=== PATIENT | female | born 1935 | race Caucasian/White ===

== ENCOUNTER → 2017-09-19 | Outpatient (CLI) | payer MEDICARE ==
[~2017-09-19] MED LIST: ASPI81CH PO; BUDE6HFA; CORTIZONE-10 PL28 GM; ERGO400 PO; GLUC500; LATA.005SO BOTHEYES; MONT10T PO
[2017-09-20 09:14] LABS: Candida species (DNA Probe) Negative (NEGATIVE); G. vaginalis (DNA Probe) Positive (NEGATIVE); T. vaginalis (DNA Probe) Negative (NEGATIVE)
== END ==
LOC: LAB SHORT 12:12 → LAB 12:12
PROVIDERS: Obstetrics & Gynecology
DX: N76.0 Acute vaginitis (principal)
CPT/HCPCS: 87480; 87510; 87660

== ENCOUNTER 2018-04-05 10:34 | Day surgery (SDC) | payer MEDICARE ==
[~2018-04-05] VITALS: Ht 162.6 cm; Wt 55.3 kg
[2018-04-05] MEDS ORDERED: HEALTHY HEART1 EACH (11:02)
--- NOTE | 2018-04-05 11:16 | NUR ---
04/05/18 [id number] Elizabeth Lucio FIRST IV UNSUCCESS IN R HAND SECOND IV SUCCESS IN L WRIST
--- NOTE | 2018-04-05 12:43 | NUR ---
04/05/18 1243 Lisa Jonas PATIENT ADMITTED TO MILD PAIN WHEN SWALLOWING BUT DENIED NEED FOR PAIN MEDICATION. WAS ABLE TO DRINK FLUIDS WITHOUT PROBLEMS. PATIENT AND WERE INSTRUCTED TO CALL MD IF ANY INCREASE IN PROBLEMS SWALLOWING
== END 2018-04-05 12:35 | disposition home or self-care (01) ==
LOC: ORSCSDS 10:34
PROVIDERS: Internal Medicine Gastroenterology
PROC: 0D758ZZ Dilation of Esophagus, Via Natural or Artificial Opening Endoscopic (ICD-10-PCS; principal; 2018-04-05 11:45)
PROC: 0DB68ZX Excision of Stomach, Via Natural or Artificial Opening Endoscopic, Diagnostic (ICD-10-PCS; principal; 2018-04-05 11:45)
DX: K21.9 Gastro-esophageal reflux disease without esophagitis (principal); R13.10 Dysphagia, unspecified; K31.7 Polyp of stomach and duodenum; K22.2 Esophageal obstruction; K44.9 Diaphragmatic hernia without obstruction or gangrene; J45.909 Unspecified asthma, uncomplicated; Z79.899 Other long term (current) drug therapy
CPT/HCPCS: 88305; 88312; 88342; J7120

== ENCOUNTER → 2018-04-09 | Outpatient (CLI) | payer MEDICARE ==
[~2018-04-09] MED LIST changes: +HEALTHY HEART1 EACH
[2018-04-09 12:20] LABS: Source, Urine Clean Catch
[2018-04-09 15:18] LABS: Bilirubin, Urine Neg (Neg); Blood, Urine Neg (Neg); Glucose Qualitative, Urine Neg (Neg); Ketones, Urine Neg (Neg); Leukocyte Esterase, Urine 2+ (Neg); Nitrite, Urine Neg (Neg); Protein, Urine Neg (Neg); Urobilinogen, Urine NORM (Normal)
[2018-04-09 15:57] LABS: Appearance, Urine Hazy (Clear); Color, Urine Yellow (P-Yellow)
[2018-04-09 15:58] LABS: Red Blood Cells, Urine Rare /hpf (0-2); Squamous Epithelial Cells Few /hpf (Few)
[2018-04-09 15:59] LABS: Bacteria Few /hpf
== END | disposition home or self-care (01) ==
LOC: LAB 12:20 → LAB SHORT 12:20
PROVIDERS: Internal Medicine
DX: R30.0 Dysuria (principal)
CPT/HCPCS: 81001; 87077; 87086; 87186

== ENCOUNTER 2022-09-01 13:48 | Emergency (ER) | payer MEDICARE ==
[~2022-09-01] VITALS: Ht 162.6 cm; Wt 57.6 kg
[2022-09-01 14:50] LABS: BASOPHILS ABSOLUTE AUTO 0.06 K/mm3 (0.00-0.23); BASOPHILS PERCENT AUTO 0 % (0-2); EOSINOPHILS ABSOLUTE AUTO 0.17 K/mm3 (0.00-0.68); EOSINOPHILS PERCENT AUTO 1 % (0-6); Hemoglobin 14.6 g/dL (11.5-16.0); IMMATURE GRAN ABSOLUTE AUTO 0.07 K/mm3 (0.00-0.10); IMMATURE GRAN PERCENT AUTO 0 % (0-1); LYMPHOCYTES PERCENT AUTO 24 % (21-46); MONOCYTES ABSOLUTE AUTO 0.96 K/mm3 (0.16-1.47); MONOCYTES PERCENT AUTO 6 % (4-13); Mean Corpuscular HGB 29.7 pg (26.0-34.0); Mean Corpuscular HGB Conc 31.7 g/dL (31.5-36.5); Mean Corpuscular Volume 94 fL (80-100); Mean Platelet Volume 9.8 fL (9.1-12.4); NEUTROPHILS ABSOLUTE AUTO 11.84 K/mm3 (1.96-9.15); NEUTROPHILS PERCENT AUTO 69 % (41-73); Platelet Count 271 K/mm3 (150-400); RDW Coefficient Variation 13.6 % (11.7-14.2); RDW Standard Deviation 46.9 fL (35.1-46.3); Red Blood Cell Count 4.92 M/mm3 (3.80-5.20)
[2022-09-01 15:10] LABS: Albumin/Globulin Ratio 1.1 (0.8-1.8); Bilirubin, Total 0.5 mg/dL (0.1-1.0); Calcium, Blood 9.2 mg/dL (8.5-10.1); Creatinine, Blood 0.71 mg/dL (0.40-1.00); Globulin, Blood 3.7 g/dL (2.2-4.0); Potassium, Blood 3.7 mmol/L (3.5-5.5); Total Protein, Blood 7.7 g/dL (6.4-8.2)
[2022-09-01 15:46] LABS: International Normalized Ratio 1.03; Prothrombin Time Results 10.8 Sec (9.7-11.5)
[2022-09-01 16:02] LABS: Source, Urine Clean Catch
[2022-09-01 16:24] LABS: Appearance, Urine Clear (Clear); Bilirubin, Urine Neg (Neg); Blood, Urine Neg (Neg); Color, Urine Yellow (P-Yellow); Glucose Qualitative, Urine Neg (Neg); Ketones, Urine 3+ (Neg); Leukocyte Esterase, Urine Neg (Neg); Nitrite, Urine Pos (Neg); Protein, Urine Neg (Neg); Specific Gravity, Urine 1.015 (1.003-1.022); Urobilinogen, Urine NORM (Normal)
[2022-09-01 16:32] LABS: Bacteria Mod /hpf; Red Blood Cells, Urine 0-2 /hpf (0-2); Squamous Epithelial Cells Few /hpf (Few)
[2022-09-01 16:45] VITALS: BP 129/81
[2022-09-01] MEDS ORDERED: CEPH500 PO (17:18)
== END 2022-09-01 17:50 | disposition home or self-care (01) ==
LOC: ER 13:48
PROVIDERS: Emergency Medicine; Physician Assistant
DX: R07.9 Chest pain, unspecified (principal); D72.829 Elevated white blood cell count, unspecified; N39.0 Urinary tract infection, site not specified; J44.9 Chronic obstructive pulmonary disease, unspecified; Z98.890 Other specified postprocedural states
CPT/HCPCS: 36415; 71046; 80053; 81001; 83690; 84484; 85025; 85610; 93005; 93010; 99285-25

== ENCOUNTER 2022-09-09 08:40 | Inpatient (IN) | payer MEDICARE ==
[~2022-09-09] VITALS: Ht 162.6 cm; Wt 56.7 kg
[~2022-09-09 08:40] MED LIST changes: +CEPH500 PO
[2022-09-09] MEDS ORDERED: BRINZOLAMIDE15 ML (08:59)
[2022-09-09 09:17] LABS: BASOPHILS ABSOLUTE AUTO 0.05 K/mm3 (0.00-0.23); BASOPHILS PERCENT AUTO 0 % (0-2); EOSINOPHILS ABSOLUTE AUTO 0.02 K/mm3 (0.00-0.68); EOSINOPHILS PERCENT AUTO 0 % (0-6); Hematocrit 42.8 % (33.0-51.0); Hemoglobin 13.8 g/dL (11.5-16.0); IMMATURE GRAN ABSOLUTE AUTO 0.09 K/mm3 (0.00-0.10); IMMATURE GRAN PERCENT AUTO 1 % (0-1); LYMPHOCYTES ABSOLUTE AUTO 3.56 K/mm3 (0.84-5.20); LYMPHOCYTES PERCENT AUTO 21 % (21-46); MONOCYTES ABSOLUTE AUTO 1.13 K/mm3 (0.16-1.47); MONOCYTES PERCENT AUTO 7 % (4-13); Mean Corpuscular HGB 29.5 pg (26.0-34.0); Mean Corpuscular HGB Conc 32.2 g/dL (31.5-36.5); Mean Corpuscular Volume 92 fL (80-100); Mean Platelet Volume 9.5 fL (9.1-12.4); NEUTROPHILS ABSOLUTE AUTO 12.33 K/mm3 (1.96-9.15); NEUTROPHILS PERCENT AUTO 72 % (41-73); Platelet Count 371 K/mm3 (150-400); RDW Coefficient Variation 13.3 % (11.7-14.2); RDW Standard Deviation 45.2 fL (35.1-46.3); Red Blood Cell Count 4.68 M/mm3 (3.80-5.20); White Blood Cell Count 17.18 K/mm3 (4.00-11.30)
[2022-09-09 09:35] LABS: Albumin/Globulin Ratio 0.7 (0.8-1.8); Bilirubin, Total 1.3 mg/dL (0.1-1.0); Bun/Creatinine Ratio 21.4 (12.0-20.0); Calcium, Blood 8.7 mg/dL (8.5-10.1); Creatinine, Blood 0.79 mg/dL (0.40-1.00); Globulin, Blood 4.1 g/dL (2.2-4.0); Potassium, Blood 3.9 mmol/L (3.5-5.5); Total Protein, Blood 7.1 g/dL (6.4-8.2)
[2022-09-09 13:19] VITALS: BP 118/63
[2022-09-09 14:00] LABS: CHOL/HDL RATIO 2.9; Cholesterol 140 mg/dL (50-200); HDL Cholesterol 49 mg/dL (>39); LDL/HDL RATIO 1.5; Low Density Lipoprotein Chol 75 mg/dL (0-110); Triglycerides 79 mg/dL (30-160); Very Low Density Lipoprot Chol 15 mg/dL (6-32)
[2022-09-09 16:43] VITALS: BP 122/71
--- NOTE | 2022-09-09 17:55 | NUR ---
SHIFT SUMMARY 1310 RECEIVED PT TO RM [id number] FROM ER VIA W/C. PT ABLE TO TX SELF TO BED. ADMITTED FOR C/O CP WHEN TAKING A DEEP BREATH. PER REPORT, CXR DONE IN ER SHOWING NEW PLEURAL EFFUSION. PT REPORTED PAIN IN L SIDE WITH SOME MOVEMENTS D/T PNM. PER REPORT IV ABX GIVEN IN ER. PT IS A&O, PLEASANT AND CO-OP. SITTING UP IN BED EATING DINNER AND VISITING WITH FAMILY AT THIS TIME. DENIES FURTHER NEEDS, CALL LT IN REACH.
[2022-09-09 19:46] VITALS: BP 123/71
--- NOTE | 2022-09-10 04:02 | NUR ---
SHIFT SUMMARY; NO ACUTE CHANGES OVERNIGHT. THE PT IS AXO X4 AND A STANDBY ASSIST TO THE BATHROOM. THE PT HAS BEEN RESTING IN BED T/O THE NIGHT. THE PT STATES THAT LYING STILL SHE HAS NO PAIN, HOWEVER, WITH MOVEMENT THE PT ENDORSES A 4/10 "STERNAL" PAIN. THE PT DENIES ANY SOB, N/V OR NUMBNESS/TINGLING. CURRENTLY THE PT IS RESTING IN BED WITH THE BED IN THE LOWEST POSITION AND THE CALL LIGHT AT BEDSIDE.
[2022-09-10 04:40] VITALS: BP 115/70
[2022-09-10 05:02] LABS: Hematocrit 39.6 % (33.0-51.0); Hemoglobin 12.8 g/dL (11.5-16.0); Mean Corpuscular HGB 29.6 pg (26.0-34.0); Mean Corpuscular HGB Conc 32.3 g/dL (31.5-36.5); Mean Corpuscular Volume 92 fL (80-100); Mean Platelet Volume 9.5 fL (9.1-12.4); Platelet Count 346 K/mm3 (150-400); RDW Coefficient Variation 13.4 % (11.7-14.2); Red Blood Cell Count 4.32 M/mm3 (3.80-5.20); White Blood Cell Count 12.76 K/mm3 (4.00-11.30)
[2022-09-10 05:16] LABS: Albumin, Blood 2.8 g/dL (3.4-5.0); Albumin/Globulin Ratio 0.7 (0.8-1.8); Bilirubin, Total 0.7 mg/dL (0.1-1.0); Calcium, Blood 8.9 mg/dL (8.5-10.1); Creatinine, Blood 0.8 mg/dL (0.40-1.00); Globulin, Blood 4.1 g/dL (2.2-4.0); Potassium, Blood 3.7 mmol/L (3.5-5.5); Total Protein, Blood 6.9 g/dL (6.4-8.2)
[2022-09-10 07:58] VITALS: BP 118/65
[2022-09-10 15:52] VITALS: BP 99/60
--- NOTE | 2022-09-10 16:32 | NUR ---
SHIFT SUMMARY PT AWAKE DURING SHIFT REPORT THIS AM. A&O, PLEASANT AND CO-OP WITH CARE. UP TO BTHRM INDEPENDENTLY TODAY, FEELING BETTER AND STRONGER THAN YESTERDAY. DR ORTIZ IN EARLY TO SEE PT. NEW ORDERS PLACED TO R/O PE. PT HAVING MULTIPLE VISITORS TODAY. IMAGING NOTIFIED FOR TIME OF CT AND PT SOON TAKEN DOWN. DR ORTIZ LATER TO TO DISCUSS TEST RESULTS. NEW ORDERS PLACED. PT TO STAY ONE MORE NIGHT AND DR TO REASSESS IN AM. PT GETTING UP TO SHOWER AT THIS TIME. CALL LT IN REACH. ABLE TO MAKE NEEDS KNOWN.
[2022-09-10 19:37] VITALS: BP 108/64
--- NOTE | 2022-09-11 04:01 | NUR ---
SHIFT SUMMARY; NO ACUTE CHANGES OVERNIGHT. THE PT IS AXO X4 AND INDEPENDENT IN THE ROOM. THE PT IS WAITING TO SEE A FLIGHT SOFTWARE TEST ENGINEER IN THE AM. THE PT HAS BEEN SLEEPING IN BED T/O THE NIGHT. THE PT DENIES ANY SOB, CHEST PAIN/PRESSURE, PAIN OR N/V THIS SHIFT. CURRENTLY THE PT IS SLEEPING IN BED WITH THE BED IN THE LOWEST POSITION AND THE CALL LIGHT AT BEDSIDE.
[2022-09-11 04:30] VITALS: BP 124/66
[2022-09-11 05:26] LABS: SARS-Cov-2 (COVID-19) PCR, MMC NEGATIVE (NEGATIVE)
[2022-09-11 05:37] LABS: BASOPHILS ABSOLUTE AUTO 0.05 K/mm3 (0.00-0.23); BASOPHILS PERCENT AUTO 1 % (0-2); EOSINOPHILS ABSOLUTE AUTO 0.15 K/mm3 (0.00-0.68); EOSINOPHILS PERCENT AUTO 2 % (0-6); Hematocrit 35.9 % (33.0-51.0); Hemoglobin 11.8 g/dL (11.5-16.0); IMMATURE GRAN ABSOLUTE AUTO 0.06 K/mm3 (0.00-0.10); IMMATURE GRAN PERCENT AUTO 1 % (0-1); LYMPHOCYTES ABSOLUTE AUTO 3.31 K/mm3 (0.84-5.20); LYMPHOCYTES PERCENT AUTO 32 % (21-46); MONOCYTES ABSOLUTE AUTO 0.92 K/mm3 (0.16-1.47); MONOCYTES PERCENT AUTO 9 % (4-13); Mean Corpuscular HGB 29.5 pg (26.0-34.0); Mean Corpuscular HGB Conc 32.9 g/dL (31.5-36.5); Mean Corpuscular Volume 90 fL (80-100); Mean Platelet Volume 9.4 fL (9.1-12.4); NEUTROPHILS ABSOLUTE AUTO 5.83 K/mm3 (1.96-9.15); NEUTROPHILS PERCENT AUTO 56 % (41-73); Platelet Count 341 K/mm3 (150-400); RDW Coefficient Variation 13.3 % (11.7-14.2); White Blood Cell Count 10.32 K/mm3 (4.00-11.30)
[2022-09-11 07:56] VITALS: BP 119/81
[2022-09-11] MEDS ORDERED: COLCHICINE0.6 MG PO (09:58)
[2022-09-11] MEDS ORDERED: IBUP600 PO (09:59)
[2022-09-11] MEDS ORDERED: OMEP20ER PO (10:00)
[2022-09-11] MEDS ORDERED: VISBIOME 112.51 EACH PO (10:00)
[2022-09-11] MEDS ORDERED: DOXY100 PO (10:01)
--- NOTE | 2022-09-11 11:25 | NUR ---
DC- PT TAKEN DOWN IN STABLE CONDITION IN WC W/ FOR DC AND LEFT WITH ALL BELONGINGS.
[2022-09-15 12:12] LABS: LYME TOTAL ANTIBODY CIA Negative (Negative)
== END 2022-09-11 10:47 | disposition home or self-care (01) | DRG 314 ==
LOC: ER 08:40 → MEDS 08:41 → ENPENDDIS 09-11 10:05 → MEDS 09-11 10:47
PROVIDERS: Internal Medicine; Student in an Organized Health Care Education/Training Program; ADMIT Internal Medicine
DX: I30.9 Acute pericarditis, unspecified (principal); J18.9 Pneumonia, unspecified organism; J90 Pleural effusion, not elsewhere classified; Z20.822 Contact with and (suspected) exposure to COVID-19; J45.909 Unspecified asthma, uncomplicated; K22.2 Esophageal obstruction; K44.9 Diaphragmatic hernia without obstruction or gangrene; R07.9 Chest pain, unspecified; D72.829 Elevated white blood cell count, unspecified; H40.9 Unspecified glaucoma; R94.31 Abnormal electrocardiogram [ECG] [EKG]; Z98.49 Cataract extraction status, unspecified eye; Z90.49 Acquired absence of other specified parts of digestive tract; Z98.890 Other specified postprocedural states; Z91.048 Other nonmedicinal substance allergy status; Z88.8 Allergy status to other drugs, medicaments and biological substances; Z79.899 Other long term (current) drug therapy
CPT/HCPCS: 36415; 71046; 71260; 80053; 80061; 83605; 83735; 83880; 84145; 84443; 84484; 85025; 85027; 85379; 85651; 86618; 87040; 93005; 93010; 93306; 96365; 96367; 96372; 96375; 99285-25; A9270; G0378; J0456; J0696; J1650; J1885; J7050; Q9967; U0002

== ENCOUNTER → 2022-10-06 | Outpatient (CLI) | payer MEDICARE ==
[~2022-10-06] MED LIST changes: +BRINZOLAMIDE15 ML; +COLCHICINE0.6 MG PO; +DOXY100 PO; +IBUP600 PO; +OMEP20ER PO; +VISBIOME 112.51 EACH PO
== END ==
LOC: LAB SHORT 14:14 → PLD 14:14
DX: L30.9 Dermatitis, unspecified (principal); I96 Gangrene, not elsewhere classified
CPT/HCPCS: 85025; 85651; 86038; 87040; 88305

== ENCOUNTER → 2022-10-06 | Outpatient (CLI) | payer MEDICARE ==
[2022-10-06 16:02] LABS: BASOPHILS ABSOLUTE AUTO 0.05 K/mm3 (0.00-0.23); BASOPHILS PERCENT AUTO 1 % (0-2); EOSINOPHILS ABSOLUTE AUTO 0.16 K/mm3 (0.00-0.68); EOSINOPHILS PERCENT AUTO 2 % (0-6); Hematocrit 41.5 % (33.0-51.0); Hemoglobin 13.4 g/dL (11.5-16.0); IMMATURE GRAN ABSOLUTE AUTO 0.04 K/mm3 (0.00-0.10); IMMATURE GRAN PERCENT AUTO 0 % (0-1); LYMPHOCYTES ABSOLUTE AUTO 3.84 K/mm3 (0.84-5.20); LYMPHOCYTES PERCENT AUTO 41 % (21-46); MONOCYTES ABSOLUTE AUTO 0.68 K/mm3 (0.16-1.47); MONOCYTES PERCENT AUTO 7 % (4-13); Mean Corpuscular HGB 28.5 pg (26.0-34.0); Mean Corpuscular HGB Conc 32.3 g/dL (31.5-36.5); Mean Corpuscular Volume 88 fL (80-100); Mean Platelet Volume 10.8 fL (9.1-12.4); NEUTROPHILS ABSOLUTE AUTO 4.55 K/mm3 (1.96-9.15); NEUTROPHILS PERCENT AUTO 49 % (41-73); Platelet Count 239 K/mm3 (150-400); RDW Coefficient Variation 13.5 % (11.7-14.2); RDW Standard Deviation 43.7 fL (35.1-46.3); White Blood Cell Count 9.32 K/mm3 (4.00-11.30)
[2022-10-08 14:08] LABS: ANA DIRECT Negative (Negative)
== END | disposition home or self-care (01) ==
LOC: LAB 11:50 → LAB SHORT 11:50
PROVIDERS: Internal Medicine
DX: R21 Rash and other nonspecific skin eruption (principal)
CPT/HCPCS: 85025; 85651; 86038; 87040

== ENCOUNTER → 2024-02-22 | Outpatient (CLI) | payer MEDICARE ==
[2024-02-22 12:51] LABS: Source, Urine Clean Catch
[2024-02-22 15:36] LABS: Appearance, Urine Clear (Clear); Bilirubin, Urine Neg (Neg); Blood, Urine 2+ (Neg); Glucose Qualitative, Urine Neg (Neg); Ketones, Urine Neg (Neg); Leukocyte Esterase, Urine 2+ (Neg); Nitrite, Urine Neg (Neg); Protein, Urine Neg (Neg); Urobilinogen, Urine NORM (Normal)
[2024-02-22 15:42] LABS: Color, Urine Pale Yellow (P-Yellow)
[2024-02-22 15:43] LABS: White Blood Cells, Urine 25-50 /hpf (0-5)
[2024-02-22 15:44] LABS: Bacteria Mod /hpf; Squamous Epithelial Cells Rare /hpf (Few)
== END | disposition home or self-care (01) ==
LOC: LAB SHORT 12:50 → LAB 12:50
PROVIDERS: Internal Medicine
DX: R30.0 Dysuria (principal)
CPT/HCPCS: 81001; 87077; 87086; 87186

== ENCOUNTER → 2024-07-15 | Outpatient (CLI) | payer MEDICARE ==
[2024-07-15 10:18] LABS: Source, Urine Clean Catch
[2024-07-15 13:31] LABS: Appearance, Urine Clear (Clear); Bilirubin, Urine Neg (Neg); Blood, Urine 1+ (Neg); Glucose Qualitative, Urine Neg (Neg); Ketones, Urine Neg (Neg); Leukocyte Esterase, Urine 2+ (Neg); Nitrite, Urine Neg (Neg); Protein, Urine Neg (Neg); Urobilinogen, Urine NORM (Normal); pH, Urine 6.5 (5.0-8.0)
[2024-07-15 13:40] LABS: Color, Urine Pale Yellow (P-Yellow)
[2024-07-15 13:41] LABS: Bacteria Many /hpf; Red Blood Cells, Urine 0-2 /hpf (0-2); Squamous Epithelial Cells Rare /hpf (Few); Transitional Epithelial Cells Rare /hpf (0-Rare)
== END | disposition home or self-care (01) ==
LOC: LAB 10:15 → LAB SHORT 10:15
PROVIDERS: Internal Medicine
DX: R30.0 Dysuria (principal)
CPT/HCPCS: 81001; 87077; 87086; 87186

== ENCOUNTER → 2024-07-29 | Outpatient (CLI) | payer MEDICARE ==
[2024-07-29 15:04] LABS: Source, Urine Clean Catch
[2024-07-29 17:21] LABS: Appearance, Urine Clear (Clear); Bilirubin, Urine Neg (Neg); Blood, Urine Neg (Neg); Color, Urine Yellow (P-Yellow); Glucose Qualitative, Urine Neg (Neg); Ketones, Urine Neg (Neg); Leukocyte Esterase, Urine 1+ (Neg); Nitrite, Urine Neg (Neg); Protein, Urine Neg (Neg); Urobilinogen, Urine NORM (Normal)
[2024-07-29 17:35] LABS: Bacteria Many /hpf; Red Blood Cells, Urine 0-2 /hpf (0-2); Squamous Epithelial Cells Few /hpf (Few)
== END | disposition home or self-care (01) ==
LOC: LAB 15:03 → LAB SHORT 15:03
PROVIDERS: Internal Medicine
DX: R30.0 Dysuria (principal)
CPT/HCPCS: 81001; 87077; 87086; 87186

== ENCOUNTER → 2025-02-17 | Outpatient (CLI) | payer MEDICARE ==
[2025-02-17 15:11] LABS: Source, Urine Clean Catch
[2025-02-17 17:58] LABS: Bilirubin, Urine Neg (Neg); Color, Urine Yellow (P-Yellow); Glucose Qualitative, Urine Neg (Neg); Ketones, Urine Neg (Neg); Leukocyte Esterase, Urine 3+ (Neg); Protein, Urine Neg (Neg); Specific Gravity, Urine 1.020 (1.003-1.022); Urobilinogen, Urine NORM (Normal)
[2025-02-17 18:17] LABS: Red Blood Cells, Urine 0-2 /hpf (0-2)
== END ==
LOC: LAB SHORT 15:10 → LAB 15:10
PROVIDERS: Internal Medicine
DX: R30.0 Dysuria (principal)
CPT/HCPCS: 81001; 87077; 87086; 87186